=== PATIENT | male | born 1980 | race Caucasian/White ===

== ENCOUNTER 2017-02-05 17:40 | Emergency (ER) | payer BC ==
[2017-02-05] MEDS ORDERED: KETOROLAC TROMETHAMINE 30 MG/1 ML VIAL IVPUSH ONE (17:43)
--- NOTE | 2017-02-05 17:45 | PDOC ---
History of Present Illness - General History Source: Patient, Old Records Exam Limitations: No Limitations <Shira Vincent - Last Filed: 02/05/17 18:43> - General History Source: Patient Exam Limitations: No Limitations - History of Present Illness Initial Comments: 02/05/17 17:53 The patient is a 36 year old male, with no significant past medical history, who presents to the emergency department with right flank pain for the past 4-5 days. The patient rates the pain as a 5/10 in severity and reports that it radiates around to the RLQ and down into the right side of his groin. The patient states that the pain had been intermittent but today progressed to constant, prompting him to visit an ED for evaluation. The patient denies fever , chills, nausea, vomiting, diarrhea, hematuria or any dysuria. Allergies: None reported. Past Surgical History: None reported. Social History: Former smoker (quit 2 months ago). Denies alcohol or drug use. <Iris Jiang - Last Filed: 02/05/17 19:14> - General Chief Complaint: Pain Stated Complaint: RT SIDE FLANK PAIN Time Seen by Provider: 02/05/17 17:42 Past History - Past Medical History Anemia: No Asthma: No Cancer: No Cardiac Disorders: No CVA: No COPD: No CHF: No Dementia: No Diabetes: No GI Disorders: No Disorders: No HTN: No Hypercholesterolemia: No Liver Disease: No Seizures: No Thyroid Disease: No - Surgical History Abdominal Surgery: No Appendectomy: No Cardiac Surgery: No Cholecystectomy: No Lung Surgery: No Neurologic Surgery: No Orthopedic Surgery: No - Psycho/Social/Smoking Cessation Hx Smoking History: Current every day smoker Have you smoked in the past 12 months: Yes Number of Cigarettes Smoked Daily: 15 Hx Alcohol Use: No Drug/Substance Use Hx: No Substance Use Type: None Hx Substance Use Treatment: No <Shira Vincent - Last Filed: 02/05/17 18:43> <Iris Jiang - Last Filed: 02/05/17 19:14> - Past Medical History Allergies/Adverse Reactions: Allergies Allergy/AdvReac Type Severity Reaction Status Date / Time No Known Allergies Allergy Verified 02/05/17 17:41 Home Medications: Ambulatory Orders NK [No Known Home Medication] 02/05/17 Review of Systems - Review of Systems Able to Perform ROS?: Yes Comments:: 02/05/17 17:48 GENERAL/CONSTITUTIONAL: No fever or chills. No weakness. HEAD, EYES, EARS, NOSE AND THROAT: No change in vision. No ear pain or discharge. No sore throat. CARDIOVASCULAR: No chest pain or shortness of breath. RESPIRATORY: No cough, wheezing, or hemoptysis. GASTROINTESTINAL: No nausea, vomiting, diarrhea or constipation. GENITOURINARY: No dysuria, frequency, or change in urination. MUSCULOSKELETAL: +Right flank pain. No joint swelling or pain. No neck pain. SKIN: No rash. NEUROLOGIC: No headache, vertigo, loss of consciousness, or change in strength/ sensation. ENDOCRINE: No increased thirst. No abnormal weight change. HEMATOLOGIC/LYMPHATIC: No anemia, easy bleeding, or history of blood clots. ALLERGIC/IMMUNOLOGIC: No hives or skin allergy. <Iris Jiang - Last Filed: 02/05/17 19:14> *Physical Exam - Physical Exam Comments: 02/05/17 17:54 GENERAL: Awake, alert, and fully oriented, in no acute distress. HEAD: No signs of trauma. EYES: PERRLA, EOMI, sclera anicteric, conjunctiva clear. ENT: Auricles normal inspection, hearing grossly normal, nares patent, oropharynx clear without exudates. Moist mucosa. NECK: Normal ROM, supple, no lymphadenopathy, JVD, or masses. LUNGS: Breath sounds equal, clear to auscultation bilaterally. No wheezes, and no crackles. HEART: Regular rate and rhythm, normal S1 and S2, no murmurs, rubs or gallops. ABDOMEN: Soft, nontender, normoactive bowel sounds. No guarding, no rebound. No masses. EXTREMITIES: Normal range of motion, no edema. No clubbing or cyanosis. No cords , erythema, or tenderness. NEUROLOGICAL: Cranial nerves II through XII intact. Normal speech, normal gait. SKIN: Warm, dry, normal turgor, no rashes or lesions noted. <Iris Jiang - Last Filed: 02/05/17 19:14> ED Treatment Course - LABORATORY CBC & Chemistry Diagram: 02/05/17 18:00 02/05/17 18:00 <Shira Vincent - Last Filed: 02/05/17 18:43> - LABORATORY CBC & Chemistry Diagram: 02/05/17 18:00 02/05/17 18:00 <Iris Jiang - Last Filed: 02/05/17 19:14> Medical Decision Making - Medical Decision Making 02/05/17 17:44 36-year-old male with no significant past medical history presents the emergency Department with complaints of left day history of right flank pain rating to the right lower quadrant. Differential diagnosis includes but is not limited to: Nephrolithiasis, urinary tract infection, melena Sunday as, gallbladder disease, muscular strain. Plan: 1. Labs 2. Urine analysis 3. Pain management 4. CT scan abdomen and pelvis renal protocol 5. Observe and reevaluate 02/05/17 18:43 Addendum: Labs were reviewed and were noted in the EMR. CT scan is negative. Will discharge home. Follow-up with primary carephysician. Return to the ED if Sx persist, worsen or new Sx arise. <Shira Vincent - Last Filed: 02/05/17 18:43> - Medical Decision Making 02/05/17 19:14 EXAM: CT/ABDOMEN & PELVIS CT W/O CONTRAST Reviewed By: Dr. Rowan Luna IMPRESSION: There is no evidence of hydroureteronephrosis, renal or ureteral stone, bilaterally. Decompressed urinary bladder limiting its evaluation. A few scattered tiny in the colon without evidence of acute diverticulitis. L5-S1 minimal central disc bulge with posterior spur formation. <Iris Jiang - Last Filed: 02/05/17 19:14> *DC/Admit/Observation/Transfer - Attestations Physician Attestion: 02/05/17 17:45 I, Dr. Shira Vincent, attest that the scribes documentation that appears above has been prepared under my direction and personally reviewed by me in its entirety. I confirmed that the note above accurately reflects all work, treatment, procedures, and medical decision-making performed by me. <Shira Vincent - Last Filed: 02/05/17 18:43> - Attestations Scribe Attestion: 02/05/17 17:46 Documentation prepared by Iris Jiang, acting as medical accounts receivable specialist for Shira Vincent MD. <Iris Jiang - Last Filed: 02/05/17 19:14> Diagnosis at time of Disposition: Acute right flank pain
[2017-02-05 18:01] VITALS: BP 127/67; PULSE 79; TEMP 98.4; BMI 26.4
[2017-02-05 18:02] LABS: URINE APPEARANCE Clear; URINE BILIRUBIN Negative (NEGATIVE); URINE BLOOD Negative (NEGATIVE); URINE GLUCOSE (UA) Negative (NEGATIVE); URINE KETONE Negative (NEGATIVE); URINE LEUK ESTERASE Negative (NEGATIVE); URINE NITRITE Negative (NEGATIVE); URINE PROTEIN Negative (NEGATIVE); URINE UROBILINOGEN 0.2 E.U/dl (0.2-1.0)
[2017-02-05 18:03] LABS: URINE COLOR YELLOW
[2017-02-05] MEDS ORDERED: KETOROLAC TROMETHAMINE 30 MG/1 ML VIAL ONE (18:04)
[2017-02-05 18:20] LABS: BASOPHIL 2.2 % (0-2.0); EOSINOPHIL 4.1 % (0-4.5); MCH 30.9 pg (25.7-33.7); MCHC 33.8 g/dl (32.0-35.9); MEAN CELL VOLUME 91.4 fl (80-96); MEAN PLT VOLUME 7.6 fl (7.5-11.1); NEUTROPHILS 61.3 % (42.8-82.8); PLATELET COUNT 333 K/MM3 (134-434); RDW 12.6 % (11.9-15.9); WHITE BLOOD COUNT 8.1 K/mm3 (4.0-10.0)
[2017-02-05 18:39] LABS: CALCIUM 9.6 mg/dl (8.4-10.2); CREATININE 0.7 mg/dl (0.6-1.3); MAGNESIUM 1.9 mg/dL (1.8-2.4); PHOSPHOROUS 3.1 mg/dl (2.5-4.6)
--- NOTE | 2017-02-05 19:16 | PDOC ---
*Physical Exam - Vital Signs Last Vital Signs Temp Pulse Resp BP Pulse Ox 98.4 F 79 18 127/67 99 02/05/17 17:41 02/05/17 17:41 02/05/17 17:41 02/05/17 17:41 02/05/17 17:41 ED Treatment Course - LABORATORY CBC & Chemistry Diagram: 02/05/17 18:00 02/05/17 18:00 - ADDITIONAL ORDERS Additional order review: Laboratory Results 02/05/17 02/05/17 18:00 17:50 Sodium 136 Potassium 4.0 Chloride 105 Carbon Dioxide 26 Anion Gap 5 L BUN 18 Creatinine 0.7 Random Glucose 97 Calcium 9.6 Phosphorus 3.1 Magnesium 1.9 Urine Color Yellow Urine Appearance Clear Urine pH 5.0 Ur Specific [place] 1.025 Urine Protein Negative Urine Glucose (UA) Negative Urine Ketones Negative Urine Blood Negative Urine Nitrite Negative Urine Bilirubin Negative Urine Urobilinogen 0.2 e.u/dl Ur Leukocyte Esterase Negative 02/05/17 18:00 RBC 4.60 MCV 91.4 MCHC 33.8 RDW 12.6 MPV 7.6 Neutrophils % 61.3 Lymphocytes % 24.3 Monocytes % 8.1 Eosinophils % 4.1 Basophils % 2.2 H - Medications Given in the ED: ED Medications Discontinued Medications Generic Name Dose Route Start Last Admin Trade Name Cristo PRN Reason Stop Dose Admin Ketorolac Tromethamine 30 mg 02/05/17 17:43 02/05/17 18:10 Toradol Injection - IVPUSH 02/05/17 17:44 30 mg ONCE ONE Administration Progress Note - Progress Note Progress Note: Care of this patient was transferred to tn from Dr. Vincent at 1900 hrs. Patient has a CT pending for evaluation of acute right flank pain. 19:15 CT shows no acute pathology. Appendix was visualized and is normal. Kidneys ureter or bladder were all unremarkable. There was a small central disc bulge L5-S1 however patient's pain is not suggestive of sciatica and he does not have any low back pain or pain radiating down his leg at this time. Patient was given a copy of his CAT scan of his blood work and discharged and was told to take everything to his primary care doctor and follow-up with his primary care doctor. *DC/Admit/Observation/Transfer Diagnosis at time of Disposition: Acute right flank pain - Discharge Dispostion Disposition: HOME Condition at time of disposition: Stable Admit: No - Patient Instructions Additional Instructions: Your CAT scan and workup was all normal. It is uncertain as to what the cause of your discomfort is however it does not appear to be anything that needs to be further addressed tonight or you need to be admitted for. You were given copies of all of your blood work and your CAT scan follow-up with your doctor if you continue to have pain and discomfort. Otherwise U can take Tylenol or ibuprofen for the pain. Return to the emergency department immediately with ANY new, persistent or worsening symptoms. Continue any medications as previously prescribed by your physician. You should follow up with your primary doctor as soon as possible regarding today's emergency department visit. . Please make sure your doctor reviews the results of your emergency evaluation. Thank you for coming to the Emergency Department today for your care. It was a pleasure to see you today. Please note that your evaluation is INCOMPLETE until you follow-up with your doctor.
== END 2017-02-05 19:20 | disposition home or self-care (01) ==
LOC: FER 17:40
PROC: 3E0333Z Introduction of Anti-inflammatory into Peripheral Vein, Percutaneous Approach (ICD-10-PCS; principal; 2017-02-05)
DX: R10.31 Right lower quadrant pain (principal); F17.210 Nicotine dependence, cigarettes, uncomplicated
CPT/HCPCS: 36415; 74176-TC; 80048; 81003; 83735; 84100; 85025; 99282-25

== ENCOUNTER 2018-01-01 16:48 | Emergency (ER) | payer BC ==
[2018-01-01 16:56] VITALS: BP 121/59; PULSE 89; BMI 26.9
--- NOTE | 2018-01-01 17:13 | PDOC ---
History of Present Illness - General History Source: Patient Exam Limitations: No Limitations - History of Present Illness Initial Comments: 01/01/18 18:12 CC: Fever, Chills, Body ache, and Headache HPI: The patient is a 37 year old male, with no significant past medical history, who presents to the emergency department with, two days of fever, chills, body ache, and headache. The patient describes his headache as waxing and waning, achy, frontal headache, rating as a 5/10. He has a Tmax of 104.9 degrees Fahrenheit. He reports using 400mg of Advil and 1000mg Tylenol with minimal relief. He describes his body aches as diffuse. As per patient, he was diagnosed by his PCP with Strep throat at the beginning of last week which he was prescribed with a Z-Pack which he did not take consistently. He reports six days ago he began to have left eye pain from what he believes is a wood chip. He woke up with left eye swelling and drainage which felt better after washing his eye. He went to an eye doctor four days ago who informed him he did not have any scratches to the cornea but, was prescribed an antibiotic eye drop. He reports going to the ENT one day ago who tested him for both the flu and strep which both came back negative. He was prescribed by the ENT Tamiflu which he took his first dose this morning. The patient is positive for sick contacts. He denies any recent sore throat, neck pain, or abdominal pain. He denies any recent nausea, vomit, or constipation. He denies any recent chest pain or shortness of breath. He denies any recent dysuria, frequency, urgency or hematuria. Allergies: NKA Past surgical history: None reported. Social History: Nonsmoker. Denies EtOH use and recreational drug use. <Sarah Mann - Last Filed: 01/01/18 18:14> <Guzman Swenson - Last Filed: 01/01/18 18:47> - General Chief Complaint: Pain Stated Complaint: FEVER, HEADACHE, SORE THROAT Time Seen by Provider: 01/01/18 17:11 Past History <Sarah Mann - Last Filed: 01/01/18 18:14> - Past Medical History Anemia: No Asthma: No Cancer: No Cardiac Disorders: No CVA: No COPD: No CHF: No Dementia: No Diabetes: No GI Disorders: No Disorders: No HTN: No Hypercholesterolemia: No Liver Disease: No Seizures: No Thyroid Disease: No - Surgical History Abdominal Surgery: No Appendectomy: No Cardiac Surgery: No Cholecystectomy: No Lung Surgery: No Neurologic Surgery: No Orthopedic Surgery: No - Suicide/Smoking/Psychosocial Hx Smoking History: Former smoker Have you smoked in the past 12 months: No Number of Cigarettes Smoked Daily: 15 Information on smoking cessation initiated: No 'Breaking Loose' booklet given: 02/05/17 Hx Alcohol Use: (social) Drug/Substance Use Hx: No Substance Use Type: None Hx Substance Use Treatment: No <Guzman Swenson - Last Filed: 01/01/18 18:47> - Past Medical History Allergies/Adverse Reactions: Allergies Allergy/AdvReac Type Severity Reaction Status Date / Time No Known Allergies Allergy Verified 01/01/18 16:50 Home Medications: Ambulatory Orders Acetaminophen [Tylenol] mg PO ASDIR 01/01/18 Ibuprofen [Advil -] 400 mg PO ASDIR 01/01/18 Oseltamivir Phosphate [Tamiflu] 75 mg PO ASDIR 01/01/18 Review of Systems - Review of Systems Able to Perform ROS?: Yes Comments:: 01/01/18 18:12 ROS: A complete review of 10 out of 10 review of systems is taken and is negative apart from what is previously mentioned below and in the HPI. <Sarah Mann - Last Filed: 01/01/18 18:14> *Physical Exam - Vital Signs Last Vital Signs Temp Pulse Resp BP Pulse Ox 100.1 F H 89 18 121/59 99 01/01/18 16:48 01/01/18 16:48 01/01/18 16:48 01/01/18 16:48 01/01/18 16:48 - Physical Exam Comments: 01/01/18 18:13 Exam: Vitals: Triage Vital signs reviewed General Appearance: no acute distress, well nourished well developed, Head: Atraumatic, normocephalic Eyes: +Mild edema to the left eye. Pupils equal reactive round, extraocular movement intact Throat: +Posterior oropharynx erythematous, mucous membranes moist, Neck: Supple;No Nuchal rigidity Chest Wall: Nontender Cardiac: Regular rate and rhythm, no murmurs, no rubs, no gallops, Lungs: Clear to auscultation bilateral, good air movement bilaterally, Abdomen: Soft, nondistended, normal bowel sounds, nontender to palpation Rectal: Exam deferred Extremities: Full range of motion to all extremities, no cyanosis, clubbing, or edema Skin: Warm and dry, no rashes or lesions, no petechiae Neuro: AOX3; Cranial Nerves 2-12 grossly intact, Strength intact to all extremities, Sensation intact to all extremities Psych: normal mood, normal affect <Sarah Mann - Last Filed: 01/01/18 18:14> - Vital Signs Last Vital Signs Temp Pulse Resp BP Pulse Ox 100.1 F H 89 18 121/59 99 01/01/18 16:48 01/01/18 16:48 01/01/18 16:48 01/01/18 16:48 01/01/18 16:48 <Guzman Swenson - Last Filed: 01/01/18 18:47> ED Treatment Course - Medications Given in the ED: ED Medications Discontinued Medications Generic Name Dose Route Start Last Admin Trade Name Freq PRN Reason Stop Dose Admin Sodium Chloride 2,000 ml 01/01/18 17:49 01/01/18 18:05 Normal Saline - IV 01/01/18 17:50 2,000 ml ONCE ONE Administration <Sarah Mann - Last Filed: 01/01/18 18:14> - LABORATORY CBC & Chemistry Diagram: 01/01/18 18:00 01/01/18 18:00 <Guzman Swenson - Last Filed: 01/01/18 18:47> Medical Decision Making - Medical Decision Making 01/01/18 18:13 The patient is a 37 year old male, with no significant past medical history, who presents to the emergency department with, two days of fever, chills, body ache, and headache. Plan is to perform blood cultures, administer fluids and IV Tylenol. <Sarah Mann - Last Filed: 01/01/18 18:14> - Medical Decision Making Reevaluation status post IV fluids and Tylenol patient's headache resolving. Patient feels much better. Reevaluation no meningeal signs. History and examination consistent with influenza. Patient is ready Tamiflu. He does have a slightly elevated white blood cell count his vital signs are stable reexamine to his left eye and there is no corneal abrasion At this point patient is stable for discharge. He will follow-up with his primary care provider this week I recommended strict fever protocol precautions plenty of fluids He will return to the emergency department immediately for any severe worsening headache next stiffness rash or for any concerns Findings, the need for follow-up, strict return instructions discussed with patient. <Guzman Swenson - Last Filed: 01/01/18 18:47> *DC/Admit/Observation/Transfer - Attestations Scribe Attestion: 01/01/18 18:13 Documentation prepared by Sarah Mann, acting as hospital medical biller for Guzman Swenson MD. <Sarah Mann - Last Filed: 01/01/18 18:14> - Discharge Dispostion Admit: No <Guzman Swenson - Last Filed: 01/01/18 18:47> Diagnosis at time of Disposition: Influenza - Discharge Dispostion Condition at time of disposition: Stable - Patient Instructions Printed Discharge Instructions: Influenza Additional Instructions: Drink plenty of fluids. Alternate 500 mg of Tylenol every 3 hours with 400 mg of Motrin for the next 3 days. Continue prescribed eyedrops. Return to the emergency department immediately for any severe uncontrollable headache neck stiffness rash or for any concerns. Follow-up with your doctor this week.
[2018-01-01] MEDS ORDERED: SODIUM CHLORIDE 0.9% 1000 ML INFUS.BAG IV ONE (17:49)
[2018-01-01] MEDS ORDERED: ACETAMINOPHEN 1000 MG/100 ML VIAL (NON FORMULARY) IVPB ONE (17:50)
[2018-01-01] MEDS ORDERED: ACETAMINOPHEN INJECTION 100 ML IVPB ONE (18:07)
[2018-01-01 18:22] LABS: BASO % 1.5 % (0-2.0); EOS % 0.4 % (0-4.5); HEMATOCRIT 40.7 % (35.4-49); LYMPH % 6.8 % (8-40); MCH 31.6 pg (25.7-33.7); MCHC 34.4 g/dl (32.0-35.9); MEAN CELL VOLUME 91.8 fl (80-96); MEAN PLT VOLUME 7.3 fl (7.5-11.1); MONO % 11.6 % (3.8-10.2); NEUT % 79.7 % (42.8-82.8); PLATELET COUNT 263 K/MM3 (134-434); RBC 4.44 M/mm3 (4.00-5.60); RDW 12.1 % (11.9-15.9); WHITE BLOOD COUNT 12.2 K/mm3 (4.0-10.8)
[2018-01-01 18:50] LABS: ANION GAP 3 (8-16); BLOOD UREA NITROGEN 16 mg/dl (7-18); CALCIUM 8.5 mg/dl (8.4-10.2); CHLORIDE 103 mmol/L (98-107); CO2 25 mmol/L (22-28); CREATININE 0.8 mg/dl (0.6-1.3); GLUCOSE,RANDOM 101 mg/dl (74-106); POTASSIUM 3.9 mmol/L (3.5-5.1); SODIUM 131 mmol/L (136-145)
[2018-01-01 19:10] VITALS: TEMP 100.7
== END 2018-01-01 19:10 | disposition home or self-care (01) ==
LOC: FER 16:48
PROC: 3E033GC Introduction of Other Therapeutic Substance into Peripheral Vein, Percutaneous Approach (ICD-10-PCS; principal; 2018-01-01)
PROC: 3E0337Z Introduction of Electrolytic and Water Balance Substance into Peripheral Vein, Percutaneous Approach (ICD-10-PCS; 2018-01-01)
DX: J11.1 Influenza due to unidentified influenza virus with other respiratory manifestations (principal)
CPT/HCPCS: 36415; 80048; 85025; 87040; 99284-25